=== PATIENT | female | born 1980 | race Hispanic/Latino ===

== ENCOUNTER → 2023-11-20 | Outpatient (REF) | payer MEDICARE | LOC: MAMMO 12:05 | PROVIDERS: ATTEND Internal Medicine | DX: Z12.31 Encounter for screening mammogram for malignant neoplasm of breast (principal); Z13.820 Encounter for screening for osteoporosis | CPT/HCPCS: 77067; 77080 ==

== ENCOUNTER → 2024-11-22 | Outpatient (REF) | payer MEDICARE | LOC: MAMMO 12:07 | PROVIDERS: ATTEND Internal Medicine | DX: Z12.31 Encounter for screening mammogram for malignant neoplasm of breast (principal) | CPT/HCPCS: 77067 ==